=== PATIENT | male | born 1940 | race Caucasian/White ===

== ENCOUNTER 2017-12-31 07:51 | Day surgery (SDC) | payer MEDICARE ==
[~2017-12-31 07:51] MED LIST: Midazolam 1 MG/ML 2 ML SDV ONE; Propofol 200 MG/20 ML SDV ONE; fentaNYL 100 MCG/2 ML SDV ONE
[2017-12-31] MEDS ORDERED: Sodium Chloride 0.9% 1,000 ML IV SCH (08:30)
[2017-12-31 10:50] VITALS: BP 113/73
--- NOTE | 2017-12-31 12:06 | OR ---
DATE OF PROCEDURE: 12/31/2017 PROCEDURE: EGD. FINDINGS: 1. Hiatal hernia, mild to moderate. 2. Inflammation in the GE junction, consistent with reflux or Mendenhall's esophagus. RISKS: Risks, benefits, alternatives, and limitations including, but not limited to infection, bleeding, and perforation were explained to the patient. PREOPERATIVE DIAGNOSIS: Epigastric pain. POSTOPERATIVE DIAGNOSIS: Epigastric pain. PROCEDURE IN DETAIL: The patient was placed in left lateral decubitus position. The EGD scope was advanced atraumatically to the second part of the duodenum. No abnormalities noted. No ulcers. No gastritis. On retroflex, the patient had a moderate-sized hiatal hernia. At the GE junction, there was inflammation consistent with reflux disease. This was biopsied x6 using cold biopsy forceps. No other abnormalities noted. The patient tolerated the procedure well. Caesar Nuno MD /[id number]
== END 2017-12-31 10:55 | disposition home or self-care (01) ==
LOC: JP.SDS 07:51
PROVIDERS: ATTEND Surgery
DX: R10.13 Epigastric pain (principal); K20.9 Esophagitis, unspecified; K21.9 Gastro-esophageal reflux disease without esophagitis; K44.9 Diaphragmatic hernia without obstruction or gangrene; I10 Essential (primary) hypertension; E78.5 Hyperlipidemia, unspecified; Z88.8 Allergy status to other drugs, medicaments and biological substances
CPT/HCPCS: 43239; J2250; J2704; J3010; J7030; 88305

== ENCOUNTER 2018-08-23 07:20 | Day surgery (SDC) | payer MEDICARE ==
[~2018-08-23 07:20] MED LIST changes: -Midazolam 1 MG/ML 2 ML SDV ONE; -Propofol 200 MG/20 ML SDV ONE; +Sodium Chloride 0.9% 1,000 ML IV SCH; -fentaNYL 100 MCG/2 ML SDV ONE
[2018-08-23] MEDS ORDERED: fentaNYL 100 MCG/2 ML SDV ONE (07:24)
[2018-08-23] MEDS ORDERED: Propofol 200 MG/20 ML SDV ONE (07:24)
[2018-08-23] MEDS ORDERED: Midazolam 1 MG/ML 2 ML SDV ONE (07:24)
[2018-08-23 10:09] VITALS: BP 124/82
--- NOTE | 2018-08-24 08:18 | OR ---
DATE OF PROCEDURE: 08/23/2018 SURGEON: Caesar Nuno MD PROCEDURE: Colonoscopy. FINDINGS: Diverticulosis, mild. COMPLICATIONS: None. COPIER REPAIR TECHNICIAN: None. ANESTHESIA: MAC. PREOPERATIVE DIAGNOSIS: History of colon polyps. POSTOPERATIVE DIAGNOSIS: History of colon polyps. RISKS: Risks, benefits, alternatives, and limitations including, but not limited to infection, bleeding, and perforation were explained to the patient, who wished to proceed. PROCEDURE IN DETAIL: The patient was placed in left lateral decubitus position. Digital rectal exam was performed without abnormality. The scope was introduced and advanced atraumatically to the ileocecal valve. The scope was brought back through the ascending, transverse, descending colon, and retroflexed. No evidence of old or new blood. No masses. No polyps. The patient did have diverticulosis, which would be described as mild and limited to sigmoid colon without evidence of diverticulitis or bleeding. The patient tolerated the procedure well. Caesar Nuno MD /[id number]
== END 2018-08-23 10:12 | disposition home or self-care (01) ==
LOC: JP.SDS 07:20
PROVIDERS: ATTEND Surgery
DX: Z12.11 Encounter for screening for malignant neoplasm of colon (principal); K57.30 Diverticulosis of large intestine without perforation or abscess without bleeding; K21.9 Gastro-esophageal reflux disease without esophagitis; K44.9 Diaphragmatic hernia without obstruction or gangrene; I10 Essential (primary) hypertension; I25.2 Old myocardial infarction; E78.00 Pure hypercholesterolemia, unspecified; Z88.8 Allergy status to other drugs, medicaments and biological substances; Z95.5 Presence of coronary angioplasty implant and graft; Z86.010 Personal history of colon polyps
CPT/HCPCS: G0121; J2250; J2704; J3010; J7030

== ENCOUNTER 2022-03-13 05:48 | Day surgery (SDC) | payer MEDICARE ==
[2022-03-13] MEDS ORDERED: Acetaminophen 500 MG Tab PO ONE (06:15)
[2022-03-13] MEDS ORDERED: Bupivacaine 0.5% 30 ML SDV ONE (06:30)
[2022-03-13] MEDS ORDERED: Lidocaine 1% with EPINEPHrine 1:100,000 50 ML MDV ONE (06:30)
[2022-03-13] MEDS ORDERED: Bupivacaine 0.5%/EPINEPHrine 1:200,000 50 ML MDV ONE (06:32)
[2022-03-13 06:46] LABS: ESTIMATED GFR 68 mL/min (>60)
[2022-03-13] MEDS ORDERED: fentaNYL 100 MCG/2 ML SDV ONE (06:55)
[2022-03-13] MEDS ORDERED: Midazolam 1 MG/ML 2 ML SDV ONE (06:55)
[2022-03-13] MEDS ORDERED: Propofol 200 MG/20 ML SDV ONE (06:55)
[2022-03-13] MEDS: Dextrose 5%-Lactated Ringers 1,000 ML IV SCH ×3 (07:01→21:56)
[2022-03-13] MEDS ORDERED: ceFAZolin 2 GM in Premix Bag 1 BAG IV ONE (07:15)
[2022-03-13] MEDS ORDERED: ceFAZolin 2 GM in Sodium Chloride 0.9% 50 ML IV ONE (07:30)
[2022-03-13] MEDS ORDERED: Ketorolac 30 MG/ML SDV ONE (08:02)
[2022-03-13] MEDS ORDERED: HYDROmorphone 2 MG Tab PO PRN (10:16)
[2022-03-13] MEDS ORDERED: Nitroglycerin 0.4 MG Tab.SL SL PRN (10:17)
[2022-03-13] MEDS ORDERED: HYDROmorphone 1 MG/ML Syringe IV PRN (11:00)
[2022-03-13] MEDS ORDERED: HYDROmorphone 0.5 MG/0.5 ML Syringe IVPUSH PRN (11:00)
[2022-03-13] MEDS ORDERED: Ondansetron 4 MG/2 ML SDV IVPUSH PRN (11:00)
[2022-03-13] MEDS ORDERED: hydrOXYzine HCL 100 MG/2 ML SDV IM PRN (11:00)
[2022-03-13] MEDS: amLODIPine 5 MG Tab PO SCH (11:34)
[2022-03-13] MEDS: Ibuprofen 400 MG Tab PO SCH ×3 (11:34→22:15)
[2022-03-13] MEDS: Ezetimibe 10 MG Tab PO SCH (11:34)
[2022-03-13] MEDS: Acetaminophen 325 MG Tab PO SCH ×2 (14:40→20:19)
[2022-03-14] MEDS: Acetaminophen 325 MG Tab PO SCH ×2 (02:27→07:28)
[2022-03-14] MEDS: Ibuprofen 400 MG Tab PO SCH (05:42)
[2022-03-14 07:32] VITALS: BP 144/73; PULSE 60
[2022-03-14] MEDS ORDERED: Clopidogrel 75 MG Tab PO SCH (09:00)
[2022-03-14] MEDS ORDERED: Aspirin 81 MG Tab.EC PO SCH (09:00)
[2022-03-14] MEDS: amLODIPine 5 MG Tab PO SCH (09:31)
[2022-03-14] MEDS: Ezetimibe 10 MG Tab PO SCH (09:32)
== END 2022-03-14 09:32 | disposition home or self-care (01) ==
LOC: JP.SDS 05:48 → JP.2SS 09:49 → JP.ICU 17:33 → JP.SDS 03-14 09:32
PROVIDERS: ATTEND Surgery
DX: K40.31 Unilateral inguinal hernia, with obstruction, without gangrene, recurrent (principal); K40.30 Unilateral inguinal hernia, with obstruction, without gangrene, not specified as recurrent; I10 Essential (primary) hypertension; G57.83 Other specified mononeuropathies of bilateral lower limbs; M19.90 Unspecified osteoarthritis, unspecified site; I25.10 Atherosclerotic heart disease of native coronary artery without angina pectoris; E78.00 Pure hypercholesterolemia, unspecified; R73.9 Hyperglycemia, unspecified; Z79.899 Other long term (current) drug therapy; Z98.890 Other specified postprocedural states; Z88.8 Allergy status to other drugs, medicaments and biological substances; Z95.5 Presence of coronary angioplasty implant and graft
CPT/HCPCS: 36415; 49507; 49521; 64772; 80053; 83735; 83880; 84100; 85027; 88302; 93005; 94762; A9270; J0690; J1885; J2250; J2704; J3010; J3490; J7121

== ENCOUNTER 2023-03-05 11:13 | Emergency (ER) | payer MEDICARE ==
[2023-03-05] MEDS ORDERED: Ondansetron 4 MG/2 ML SDV IVPUSH ONE (11:25)
[2023-03-05] MEDS ORDERED: HYDROmorphone 0.5 MG/0.5 ML Syringe IVPUSH ONE (11:25)
[2023-03-05] MEDS ORDERED: Sodium Chloride 0.9% 1,000 ML IV SCH (11:30)
[2023-03-05 11:36] LABS: HEMATOCRIT 46.9 % (38.4-49.7); HEMOGLOBIN 15.6 g/dL (12.9-16.9); MEAN CORPUSCULAR HEMOGLOBIN 29.4 pg (31.6-35.5); MEAN CORPUSCULAR HGB CONC 33.3 g/dL (31.6-35.5); MEAN CORPUSCULAR VOLUME 88.5 fL (81.4-99.0); RED BLOOD CELL COUNT 5.3 M/uL (4.14-5.76)
[2023-03-05 11:41] VITALS: PULSE 67
[2023-03-05 11:44] LABS: PROTHROMBIN TIME 10.3 sec (9.2-10.6)
[2023-03-05 11:48] LABS: A/G RATIO 1.2 (1.2-2.2); ALANINE AMINOTRANSFERASE,ALT 20 U/L (12-78); ALBUMIN 3.6 g/dL (3.4-5.0); ALKALINE PHOSPHATASE 75 U/L (46-116); ANION GAP 10.3 mmol/L (5.0-14.0); ASPARTATE AMNIOTRANSFERASE,AST 19 U/L (15-37); BILIRUBIN TOTAL 0.4 mg/dL (0.2-1.0); BLOOD UREA NITROGEN,BUN 14 mg/dL (7-18); CALCIUM 8.7 mg/dL (8.5-10.1); CARBON DIOXIDE,CO2 27 mmol/L (21-32); CHLORIDE,CL 103 mmol/L (100-108); CREATINE KINASE,CK 143 U/L (39-308); CREATININE 1.2 mg/dL (0.8-1.3); EST CRCL DRUG DOSING (CG) 43.57 mL/min; ESTIMATED GFR 61 mL/min (>60); GLUCOSE RANDOM 131 mg/dL (74-106); PROTEIN TOTAL,TP 6.7 g/dL (6.4-8.2); SODIUM,NA 140 mmol/L (140-148)
[2023-03-05 11:52] VITALS: BP 146/68
[2023-03-05] MEDS ORDERED: Diphtheria,Pertussis(Acell),Tetanus Vaccine 0.5 ML Syringe IM ONE (11:57)
[2023-03-05] MEDS ORDERED: Propofol 200 MG/20 ML SDV ONE ×2 (12:53→13:38)
[2023-03-05] MEDS ORDERED: Lidocaine 1% 10 ML MDV INJECT ONE (13:52)
== END 2023-03-05 15:07 | disposition home or self-care (01) ==
LOC: JP.ED 11:13
DX: S52.571A Other intraarticular fracture of lower end of right radius, initial encounter for closed fracture (principal); S52.572A Other intraarticular fracture of lower end of left radius, initial encounter for closed fracture; S01.21XA Laceration without foreign body of nose, initial encounter; S70.12XA Contusion of left thigh, initial encounter; I10 Essential (primary) hypertension; E78.00 Pure hypercholesterolemia, unspecified; Z23 Encounter for immunization; I25.2 Old myocardial infarction; K21.9 Gastro-esophageal reflux disease without esophagitis; Z79.01 Long term (current) use of anticoagulants; Z79.899 Other long term (current) drug therapy; Z88.8 Allergy status to other drugs, medicaments and biological substances; W11.XXXA Fall on and from ladder, initial encounter
CPT/HCPCS: 12013; 25605; 36415; 70150; 70450; 71045; 72125; 72170; 73100; 76000; 76377; 80053; 80307; 82550; 83605; 85027; 85610; 90471; 90715; 96361; 96374; 96375; 99152; 99284; J1170; J2405; J2704; J7030; 12011; 12051

== ENCOUNTER 2023-06-21 06:48 | Day surgery (SDC) | payer MEDICARE ==
[2023-06-21 07:14] LABS: HEMATOCRIT 43.5 % (38.4-49.7); HEMOGLOBIN 14.8 g/dL (12.9-16.9); MEAN CORPUSCULAR HEMOGLOBIN 29.7 pg (31.6-35.5); MEAN CORPUSCULAR VOLUME 87.2 fL (81.4-99.0); RED BLOOD CELL COUNT 4.99 M/uL (4.14-5.76); WHITE BLOOD CELL COUNT,WBC 6.3 K/uL (3.2-11.0)
[2023-06-21 07:35] LABS: A/G RATIO 1.1 (1.2-2.2); ALANINE AMINOTRANSFERASE,ALT 26 U/L (12-78); ALBUMIN 3.4 g/dL (3.4-5.0); ALKALINE PHOSPHATASE 73 U/L (46-116); ANION GAP 7.5 mmol/L (5.0-14.0); ASPARTATE AMNIOTRANSFERASE,AST 15 U/L (15-37); BILIRUBIN TOTAL 0.4 mg/dL (0.2-1.0); BLOOD UREA NITROGEN,BUN 16 mg/dL (7-18); CALCIUM 8.8 mg/dL (8.5-10.1); CARBON DIOXIDE,CO2 29 mmol/L (21-32); CHLORIDE,CL 104 mmol/L (100-108); CREATININE 1.1 mg/dL (0.8-1.3); EST CRCL DRUG DOSING (CG) 47.53 mL/min; ESTIMATED GFR 67 mL/min (>60); GLUCOSE RANDOM 116 mg/dL (74-106); POTASSIUM,K 3.9 mmol/L (3.6-5.2); PROTEIN TOTAL,TP 6.6 g/dL (6.4-8.2); SODIUM,NA 140 mmol/L (140-148)
[2023-06-21] MEDS: Lactated Ringers 1,000 ML IV SCH (07:51)
[2023-06-21] MEDS: Nozin Nasal Sanitizer NASBOTH ONE (07:52)
[2023-06-21] MEDS ORDERED: fentaNYL 250 MCG/5 ML SDV ONE (07:53)
[2023-06-21] MEDS ORDERED: Neostigmine Methylsulfate 10 MG/10 ML MDV ONE (07:54)
[2023-06-21] MEDS ORDERED: Propofol 200 MG/20 ML SDV ONE (07:54)
[2023-06-21] MEDS ORDERED: Glycopyrrolate 0.2 MG/ML 5 ML MDV ONE (07:54)
[2023-06-21] MEDS ORDERED: Dexamethasone 4 MG/ML SDV ONE (07:54)
[2023-06-21] MEDS ORDERED: Rocuronium 50 MG/5 ML Vial ONE (07:54)
[2023-06-21] MEDS ORDERED: Ondansetron 4 MG/2 ML SDV ONE (07:54)
[2023-06-21] MEDS: ceFAZolin 2 GM in Premix Bag 1 BAG IV ONE (09:00)
[2023-06-21] MEDS: Bupivacaine 0.5% 30 ML SDV ONE (09:41)
[2023-06-21] MEDS ORDERED: Acetaminophen/HYDROcodone 325-5 MG Tab PO ONE (11:35)
[2023-06-21] MEDS: Acetaminophen/HYDROcodone 325-5 MG Tab PO ONE (11:55)
[2023-06-21 12:02] VITALS: BP 120/75; PULSE 66
== END 2023-06-21 12:25 | disposition home or self-care (01) ==
LOC: JP.SDS 06:48
PROVIDERS: ATTEND Specialist
DX: M24.831 Other specific joint derangements of right wrist, not elsewhere classified (principal); I10 Essential (primary) hypertension; K21.9 Gastro-esophageal reflux disease without esophagitis; I25.10 Atherosclerotic heart disease of native coronary artery without angina pectoris
CPT/HCPCS: 25390; 36415; 76000; 80053; 85027; 93005; 93010; A9270; C1713; C1776; J0665; J0690; J1100; J2405; J2704; J2710; J3010; J3490; J7120

== ENCOUNTER 2023-08-22 17:52 | Emergency (ER) | payer MEDICARE ==
[2023-08-22 18:59] VITALS: BP 158/87; PULSE 76
== END 2023-08-22 21:04 | disposition home or self-care (01) ==
LOC: JP.ED 17:52
DX: M79.89 Other specified soft tissue disorders (principal); E78.00 Pure hypercholesterolemia, unspecified; I10 Essential (primary) hypertension; I25.2 Old myocardial infarction; Z88.8 Allergy status to other drugs, medicaments and biological substances; Z79.899 Other long term (current) drug therapy; Z86.19 Personal history of other infectious and parasitic diseases
CPT/HCPCS: 93971-RT; 99283